=== PATIENT | female | born 1990 | race Caucasian/White ===

== ENCOUNTER 2018-02-24 13:04 | Emergency (ER) | payer SELFPAY ==
[2018-02-24 13:10] VITALS: BP 133/82
[2018-02-24] MEDS ORDERED: FAMOTIDINE INJ/PF 20 MG/2 ML SDV IV ONE (13:34)
[2018-02-24] MEDS ORDERED: NORMAL SALINE 1000 ML 1,000 ML IV ONE (13:34)
[2018-02-24] MEDS ORDERED: ONDANSETRON HCL INJ/PF 4 MG/2 ML SDV IV ONE (13:35)
--- NOTE | 2018-02-24 13:39 | ER Document Report ---
ED General - General Chief Complaint: Nausea/Vomiting Stated Complaint: DEHYDRATION Time Seen by Provider: 02/24/18 13:29 Mode of Arrival: Ambulatory Information source: Patient, [facility] Records Notes: 27-year-old female with no reported past medical history presents with complaint of nausea, vomiting and generalized abdominal pain and headache. Patient states that nausea and vomiting began this morning. She reports 3 episodes of nonbloody nonbilious emesis. Patient's abdominal pain is described as cramping, intermittent. Patient states that she believes she had diarrhea last night but admits to drinking and is unsure. She reports that she drank "a couple of beers". Headache is described as a mild throbbing headache without associated blurred vision, slurred speech, weakness. Patient denies sick contacts, dysuria, hematuria, fever, chills. Patient is concerned that she is dehydrated. TRAVEL OUTSIDE OF THE [place] IN LAST 30 DAYS: No - HPI Onset: Just prior to arrival Onset/Duration: Gradual Quality of pain: Cramping Severity: Mild Associated symptoms: Diarrhea, Nausea, Vomiting Exacerbated by: Denies Relieved by: Denies Similar symptoms previously: Yes Recently seen / treated by doctor: Yes - Related Data Allergies/Adverse Reactions: clindamycin Allergy (Verified 02/24/18 13:29) Penicillins Allergy (Verified 02/24/18 13:29) Past Medical History - General Information source: Patient, [facility] Records - Social History Smoking Status: Former Smoker Frequency of alcohol use: Occasional Drug Abuse: None Lives with: Family Family History: Reviewed & Not Pertinent Patient has suicidal ideation: No Patient has homicidal ideation: No - Medical History Medical History: Negative Renal/ Medical History: Denies: Hx Peritoneal Dialysis Review of Systems - Review of Systems Notes: REVIEW OF SYSTEMS: CONSTITUTIONAL : Denies fever, chills, or sweats. Denies recent illness. Denies weight loss, recent hospitalizations. EENT: Denies visual changes, eye pain. Denies sore throat, oral lesions, difficulty swallowing. CARDIOVASCULAR: Denies chest pain. Denies palpitations. Denies lower extremity edema. RESPIRATORY: Denies cough. Denies shortness of breath, wheezing. GASTROINTESTINAL: Denies abdominal distention. Denies blood in vomitus, stools, or per rectum. Denies black, tarry stools. Denies constipation. GENITOURINARY: Denies difficulty urinating, painful urination, frequency, blood in urine, or vaginal discharge. MUSCULOSKELETAL: Denies back or neck pain or stiffness. Denies joint pain or swelling. SKIN: Denies rash, lesions or sores. HEMATOLOGIC : Denies easy bruising or bleeding. LYMPHATIC: Denies swollen glands. NEUROLOGICAL: Denies confusion or altered mental status. Denies loss of consciousness. Denies dizziness or lightheadedness. Denies weakness or paralysis. Denies problems difficulty with ambulation, slurred speech. Denies sensory loss, numbness, or tingling. Denies seizures. PSYCHIATRIC: Denies anxiety or stress. Denies depression, suicidal ideation, or homicidal ideation. Denies visual or auditory hallucinations. Physical Exam - Vital signs Vitals: Temp Pulse Resp BP Pulse Ox 98.0 F 83 12 133/82 H 97 02/24/18 13:08 02/24/18 13:08 02/24/18 13:08 02/24/18 13:08 02/24/18 13:08 - Notes Notes: PHYSICAL EXAMINATION: GENERAL: Ill-appearing. Does not appear toxic. HEAD: Atraumatic, normocephalic. EYES: Pupils equal round and reactive to light, extraocular movements intact, conjunctiva are normal. ENT: Nares patent, oropharynx clear without exudates. Dry mucous membranes. NECK: Normal range of motion, supple without lymphadenopathy LUNGS: Breath sounds clear to auscultation bilaterally and equal. No wheezes rales or rhonchi. HEART: Regular rate and rhythm without murmurs ABDOMEN: Soft, nontender, nondistended abdomen. No guarding, no rebound. No masses appreciated. Female : deferred Musculoskeletal: Normal range of motion, no pitting or edema. No cyanosis. NEUROLOGICAL: Cranial nerves grossly intact. Normal speech, normal gait. Normal sensory, motor exams PSYCH: Normal mood, normal affect. SKIN: Warm, Dry, normal turgor, no rashes or lesions noted. Course - Re-evaluation Re-evalutation: Laboratory 02/24/18 02/24/18 13:47 13:47 Sodium 140.3 Potassium 4.2 Chloride 107 Carbon Dioxide 24 Anion Gap 9 BUN 12 Creatinine 0.71 Est GFR ( Amer) > 60 Est GFR (Non-Af Amer) > 60 Glucose 88 Calcium 9.6 Lipase 73.7 Urine Color YELLOW Urine Appearance SLIGHTLY-CLOUDY Urine pH 7.0 Ur Specific [place] 1.020 Urine Protein NEGATIVE Urine Glucose (UA) NEGATIVE Urine Ketones NEGATIVE Urine Blood NEGATIVE Urine Nitrite NEGATIVE Urine Bilirubin NEGATIVE Urine Urobilinogen 2.0 H Ur Leukocyte Esterase LARGE H Urine WBC (Auto) 13 Urine RBC (Auto) 2 Urine Bacteria (Auto) TRACE Squamous Epi Cells Auto 10 Urine Mucus (Auto) RARE Urine Ascorbic Acid NEGATIVE Urine HCG, Qual NEGATIVE 19-year-old female resents with nausea, vomiting, headache, abdominal cramping. Vital signs stable upon arrival. Physical exam within normal limits. Her exam is more consistent with being hung over than with dehydration. Patient was provided IV fluids, Zofran and Pepcid. BMP is without any electrolyte abnormalities. Urinalysis is suspicious for urinary tract infection. Patient states that she has no dysuria, frequency or urgency. We did speak about a short course of antibiotics which the patient is declining. 02/24/18 14:54 Patient declining antibiotic for urinary tract infection because she is "allergic to antibiotics". Urine culture will be sent. Patient reports improvement of her nausea, vomiting and headache. Patient was evaluated and treated as appropriate for the patient's presenting symptoms and complaint, with consideration of any critical or life threatening conditions that may be associated with their obtained history and exam as noted above. All results were discussed with patient. Patient provided the opportunity to ask questions, and express concerns. Patient was educated on treatments based on their presumed diagnosis as noted above. At this time we will discharge the patient with return precautions and follow-up recommendations. Verbal discharge instructions given a the bedside. Medication warnings reviewed. Patient is in agreement with this plan and has verbalized understanding of return precautions. After careful consideration I feel that that patient can be safely discharged from the emergency department, they were advised to followup with a primary care physician in 2-3 days. Dictation on this chart was performed using voice recognition software and may result in unintended grammatical, spelling, syntax or errors. 02/25/18 15:28 - Vital Signs Vital signs: Temp Pulse Resp BP Pulse Ox 98.0 F 83 12 133/82 H 97 02/24/18 13:08 02/24/18 13:08 02/24/18 13:08 02/24/18 13:08 02/24/18 13:08 - Laboratory Result Diagrams: 02/24/18 13:47 Laboratory results interpreted by me: 02/24/18 13:47 Urine Urobilinogen 2.0 H Ur Leukocyte Esterase LARGE H Discharge - Discharge Clinical Impression: Elevated blood pressure reading Nausea & vomiting Qualifiers: Vomiting type: unspecified Vomiting Intractability: non-intractable Qualified Code(s): R11.2 - Nausea with vomiting, unspecified Urinary tract infection Qualifiers: Urinary tract infection type: site unspecified Hematuria presence: without hematuria Qualified Code(s): N39.0 - Urinary tract infection, site not specified Condition: Good Disposition: HOME, SELF-CARE Instructions: Antinausea Medication ([facility]), Intravenous (IV) Fluids ([facility]), Urinary Tract Infection ([facility]), Vomiting ([facility]) Additional Instructions: Your urine shows findings consistent with a urinary tract infection. Please take all the antibiotics as directed even if your symptoms have improved. Please follow-up with your primary care physician as needed. Return to emergency room if you develop fever >101F, persistent vomiting, become lethargic , have severe pain in your sides, or any other symptoms that are concerning to you. Your labs do not show any evidence of dehydration. Follow up with your [id number] hours for further care or return to the ED IMMEDIATELY if symptoms worsen or you have any concerns. If you cannot afford to follow up with your primary care physician a list of low cost clinics have been provided at the end of your discharge papers as well. Most prescribed medications have multiple side effects. The safest thing to do is when filling your prescription speak to your pharmacist regarding possible interactions with your normal home medications and over the counter medications such as Ibuprofen, Tylenol, Benadryl. If you experience any symptoms that cause you discomfort or concern you should discontinue the medication immediately and return to the emergency room or call your primary care physician. Prescriptions: Nitrofurantoin Monohyd/M-Cryst [Macrobid 100 mg Capsule] 1 tab PO BID #20 capsule Ondansetron [Zofran Odt 4 mg Tablet] 1 tab PO Q4H PRN #15 tab.rapdis PRN Reason: For Nausea/Vomiting Forms: Elevated Blood Pressure
[2018-02-24 14:24] LABS: ANION GAP 9 (5-19); BLOOD UREA NITROGEN 12 mg/dL (7-20); CALCIUM 9.6 mg/dL (8.4-10.2); CARBON DIOXIDE 24 mmol/L (22-30); CHLORIDE 107 mmol/L (98-107); GLUCOSE 88 mg/dL (75-110); LIPASE 73.7 U/L (23-300); POTASSIUM 4.2 mmol/L (3.6-5.0); SODIUM 140.3 mmol/L (137-145)
[2018-02-24 14:39] LABS: APPEARANCE,URINE SLIGHTLY-CLOUDY; BILIRUBIN,URINE NEGATIVE (NEGATIVE); COLOR,URINE YELLOW; GLUCOSE, URINE NEGATIVE (NEGATIVE); KETONES,URINE NEGATIVE (NEGATIVE); LEUKOCYTE ESTERASE,URINE LARGE (NEGATIVE); NITRITE,URINE NEGATIVE (NEGATIVE); PROTEIN,URINE NEGATIVE (NEGATIVE)
[2018-02-24] MEDS ORDERED: NITROFURANTOIN MONOHYD/M-CRYST 100 MG CAPSULE PO ONE (14:50)
== END 2018-02-24 15:02 | disposition home or self-care (01) ==
LOC: ER 13:04
DX: N39.0 Urinary tract infection, site not specified (principal); R03.0 Elevated blood-pressure reading, without diagnosis of hypertension; R11.2 Nausea with vomiting, unspecified; R10.84 Generalized abdominal pain; R51 Headache; Z88.3 Allergy status to other anti-infective agents; Z88.0 Allergy status to penicillin
CPT/HCPCS: 99283; 96361; 96374; 36415; 83690; 81025; 80048; 81001; J2405; J7030; S0028; J8499; 87086

== ENCOUNTER 2018-03-11 12:03 | Emergency (ER) | payer SELFPAY ==
[2018-03-11] MEDS ORDERED: NORMAL SALINE 1000 ML 1,000 ML IV ONE (12:26)
[2018-03-11] MEDS ORDERED: ONDANSETRON HCL INJ/PF 4 MG/2 ML SDV IV ONE (12:27)
--- NOTE | 2018-03-11 12:30 | ER Document Report ---
ED Medical Screen (RME) - General Chief Complaint: Back Pain Stated Complaint: BACK PAIN Time Seen by Provider: 03/11/18 12:19 Notes: Patient is a 27-year-old female that presents to the emergency department for chief complaint of chest pain, left flank pain, nausea. Patient was recently seen and treated for urinary tract infection on the seventh, she states her symptoms are persistent, she is having right flank pain, she is also having pain in her chest that goes to her left armpit, and she also noticed a bruise this morning, on her arm, without trauma she states she sleeps on her left side , but does not recall any injury and she was concerned about this as well. She does not believe she is , she has some warmth in her urine, but no blood or significant pain with urination she has been on Macrobid for the past week. ROS: Unless otherwise stated in this report the patient's positive and negative responses for review of systems for constitutional, eyes, ENT, cardiovascular, respiratory, gastrointestinal, neurological, genitourinary, musculoskeletal, and integumentary systems and related systems to the presenting problem are either as stated in the HPI or were not pertinent or were negative for the symptoms and/or complaints related to the presenting medical problem. PHYSICAL EXAMINATION: Vital signs reviewed. GENERAL: Well-appearing, well-nourished and in no acute distress. HEAD: Atraumatic, normocephalic. EYES: Pupils equal round extraocular movements intact, conjunctiva are normal. ENT: Nares patent NECK: Normal range of motion CV: Heart regular rate and rhythm LUNGS: No respiratory distress Musculoskeletal: Normal range of motion NEUROLOGICAL: Normal speech PSYCH: Normal mood, normal affect. Skin: There is an area of ecchymosis approximately 8 cm x 5 cm in the patient's left upper arm, tenderness to palpation, no gross deformity MDM: Patient seen and examined for rapid initial assessment. Vital signs reviewed. A comprehensive ED assessment and evaluation of the patient, analysis of test results and completion of the medical decision making process will be conducted by additional ED providers. *Note is created using voice recognition software and may contain spelling, syntax or grammatical errors. TRAVEL OUTSIDE OF THE [place] IN LAST 30 DAYS: No - Related Data Allergies/Adverse Reactions: clindamycin Allergy (Verified 02/24/18 13:29) Penicillins Allergy (Verified 02/24/18 13:29) Past Medical History - Social History Frequency of alcohol use: Social Drug Abuse: None Renal/ Medical History: Denies: Hx Peritoneal Dialysis Past Surgical History: Reports: Hx Section Physical Exam - Vital signs Vitals: Temp Pulse Resp BP Pulse Ox 97.6 F 62 16 130/75 H 99 03/11/18 12:08 03/11/18 12:08 03/11/18 12:08 03/11/18 12:08 03/11/18 12:08 Course - Vital Signs Vital signs: Temp Pulse Resp BP Pulse Ox 97.6 F 62 16 130/75 H 99 03/11/18 12:08 03/11/18 12:08 03/11/18 12:08 03/11/18 12:08 03/11/18 12:08
[2018-03-11 13:50] LABS: ABSOLUTE EOSINOPHILS # (AUTO) 0.1 10^3/uL (0.0-0.6); ABSOLUTE LYMPHOCYTES (AUTO) 2.2 10^3/uL (0.5-4.7); ABSOLUTE MONOCYTES (AUTO) 0.4 10^3/uL (0.1-1.4); ABSOLUTE NEUT (AUTO) 2.9 10^3/uL (1.7-8.2); BASOPHILS % (AUTO) 0.8 % (0-2); EOSINOPHILS % (AUTO) 1.6 % (0-6); HEMATOCRIT 43.5 % (36.0-47.0); LYMPHOCYTES % (AUTO) 38.2 % (13-45); MEAN CORPUSCULAR HEMOGLOBIN 30.6 pg (27.0-33.4); MEAN CORPUSCULAR HGB CONC 34.5 g/dL (32.0-36.0); MEAN CORPUSCULAR VOLUME 89 fl (80-97); MONOCYTES % (AUTO) 7.3 % (3-13); PLATELET COUNT 143 10^3/uL (150-450); RED BLOOD COUNT 4.92 10^6/uL (3.72-5.28); RED CELL DISTRIBUTION WIDTH 12.9 % (11.5-14.0); SEGMENTED NEUTROPHILS % (AUTO) 52.1 % (42-78); TOTAL CELLS COUNTED % (AUTO) 100 %; WHITE BLOOD COUNT 5.6 10^3/uL (4.0-10.5)
[2018-03-11 13:56] LABS: APPEARANCE,URINE CLEAR; BILIRUBIN,URINE NEGATIVE (NEGATIVE); COLOR,URINE COLORLESS; GLUCOSE, URINE NEGATIVE (NEGATIVE); KETONES,URINE NEGATIVE (NEGATIVE); LEUKOCYTE ESTERASE,URINE NEGATIVE (NEGATIVE); NITRITE,URINE NEGATIVE (NEGATIVE); PROTEIN,URINE NEGATIVE (NEGATIVE); URINE SPECIFIC GRAVITY 1.003; UROBILINOGEN,URINE NEGATIVE mg/dL (<2.0)
[2018-03-11 14:11] LABS: ALANINE AMINOTRANSFERASE 15 U/L (9-52); ALBUMIN 4.8 g/dL (3.5-5.0); ALKALINE PHOSPHATASE 60 U/L (38-126); ANION GAP 9 (5-19); ASPARTATE AMINO TRANSFERASE 23 U/L (14-36); BILIRUBIN,DIRECT 0.3 mg/dL (0.0-0.4); BILIRUBIN,TOTAL 0.8 mg/dL (0.2-1.3); BLOOD UREA NITROGEN 11 mg/dL (7-20); CALCIUM 9.5 mg/dL (8.4-10.2); CARBON DIOXIDE 26 mmol/L (22-30); CHLORIDE 105 mmol/L (98-107); GLUCOSE 84 mg/dL (75-110); LIPASE 179.2 U/L (23-300); POTASSIUM 4.2 mmol/L (3.6-5.0); SODIUM 139.6 mmol/L (137-145); TOTAL PROTEIN 8.2 g/dL (6.3-8.2)
--- NOTE | 2018-03-11 14:56 | RADIOLOGY REPORT (SQ) ---
EXAM DESCRIPTION: CT ABD/PELVIS NO ORAL OR IV COMPLETED DATE/TIME: 03/11/2018 2:45 pm REASON FOR STUDY: left flank pain COMPARISON: None. TECHNIQUE: CT scan of the abdomen and pelvis performed without intravenous or oral contrast. Images reviewed with lung, soft tissue, and bone windows. Reconstructed coronal and sagittal MPR images revi ewed. All images stored on PACS. All CT scanners at this facility use dose modulation, iterative reconstruction, and/or weight based d osing when appropriate to reduce radiation dose to as low as reasonably achievable (ALARA). [facility]: Dose Right [facility]: CareDose [facility]: Dose Right [facility]: Teradose 4D [facility]: Healthpointz RADIATION DOSE: CT Rad equipment meets quality standard of care and radiation dose reduction techniq ues were employed. CTDIvol: 5.8 mGy. DLP: 317 mGy-cm.mGy. LIMITATIONS: None. FINDINGS: LOWER CHEST: No significant findings. No nodules or infiltrates. NON-CONTRASTED LIVER, SPLEEN, ADRENALS: Evaluation limited by lack of IV contrast. No identified sign ificant masses. PANCREAS: No masses. No peripancreatic inflammatory changes. GALLBLADDER: No identified stones by CT criteria. No inflammatory changes to suggest cholecystitis. RIGHT KIDNEY AND URETER: No suspicious masses. Assessment limited by lack of IV contrast. No signif icant calcifications. No hydronephrosis or hydroureter. LEFT KIDNEY AND URETER: No suspicious masses. Assessment limited by lack of IV contrast. No signifi cant calcifications. No hydronephrosis or hydroureter. AORTA AND RETROPERITONEUM: No aneurysm. No retroperitoneal masses or adenopathy. BOWEL AND PERITONEAL CAVITY: No obvious masses or inflammatory changes. No free fluid. APPENDIX: Normal. PELVIS, BLADDER, AND ABDOMINAL WALL:IUD in the uterus. No abnormal masses. No free fluid. Bladder no rmal. BONES: No significant findings. OTHER: No other significant finding. IMPRESSION: NO SIGNIFICANT OR ACUTE PROCESS IN THE ABDOMEN OR PELVIS. COMMENT: Quality ID # [id number]: Final reports with documentation of one or more dose reduction techniques (e.g., Automated exposure control, adjustment of the mA and/or kV according to patient size, use of iterative reconstruction technique) TECHNICAL DOCUMENTATION: JOB ID: [id number] [email or web address]- All Rights Reserved Reading location - IP/workstation name: [email or web address]
--- NOTE | 2018-03-11 15:00 | RADIOLOGY REPORT (SQ) ---
EXAM DESCRIPTION: CHEST 2 VIEWS COMPLETED DATE/TIME: 03/11/2018 2:52 pm REASON FOR STUDY: chest pain COMPARISON: None. EXAM PARAMETERS: NUMBER OF VIEWS: two views TECHNIQUE: Digital Frontal and Lateral radiographic views of the chest acquired. RADIATION DOSE: NA LIMITATIONS: none FINDINGS: LUNGS AND PLEURA: No opacities, masses or pneumothorax. No pleural effusion. MEDIASTINUM AND HILAR STRUCTURES: No masses or contour abnormalities. HEART AND VASCULAR STRUCTURES: Heart normal size. No evidence for failure. BONES: No acute findings. HARDWARE: None in the chest. OTHER: No other significant finding. IMPRESSION: NO ACUTE RADIOGRAPHIC FINDING IN THE CHEST. TECHNICAL DOCUMENTATION: JOB ID: [id number] [employer]- All Rights Reserved Reading location - IP/workstation name: [email or web address]
--- NOTE | 2018-03-11 16:36 | ER Document Report ---
ED General - General Chief Complaint: Back Pain Stated Complaint: BACK PAIN Time Seen by Provider: 03/11/18 12:19 Mode of Arrival: Ambulatory Information source: Patient Notes: Patient is a 27-year-old female comes emergency room with multiple complaints primarily right hip pain for the past 4 months but got her here today as a pain on the left side of her body around the shoulder blade and around under the armpit and towards the breast. She calls this a heaviness like a pressure pushing out and at times it feels like needles. She denies severe pain when she takes a deep breath but notices the difference between the left and right upper body. She denies having any kind of a traumatic event but she does have a 3-year-old that she picks up with both arms. She also has a bruise on the left upper arm lateral side. Is from out of town and they are headed back to [place] tomorrow. Denies any other medical problems. Patient also states she was in here not too long ago and was diagnosed with her first UTI of her life and took the prescribed amount of Macrobid and felt that may be this pain was associated with having an increasing kidney infection. Also states she is under more pressure than usual with the her mother dying Her trip back to [place]. There is no history of breast cancer in the family which patient has not been checked for 10 years. She has not seen [facility] in that period time either. TRAVEL OUTSIDE OF THE [place] IN LAST 30 DAYS: No - HPI Onset: This morning Onset/Duration: Sudden Quality of pain: Sharp, Stabbing, Other - [place] Severity: Moderate Pain Level: 4 Associated symptoms: Hurts to breath Exacerbated by: Movement, Deep breathing, Other - Touch Relieved by: Denies Similar symptoms previously: No Recently seen / treated by doctor: No - Related Data Allergies/Adverse Reactions: clindamycin Allergy (Verified 02/24/18 13:29) Penicillins Allergy (Verified 02/24/18 13:29) Past Medical History - General Information source: Patient - Social History Smoking Status: Current Some Day Smoker Cigarette use (# per day): Yes Chew tobacco use (# tins/day): No Smoking Education Provided: Yes Frequency of alcohol use: Social Drug Abuse: None Lives with: Family Family History: Reviewed & Not Pertinent Patient has suicidal ideation: No Patient has homicidal ideation: No Renal/ Medical History: Denies: Hx Peritoneal Dialysis Past Surgical History: Reports: Hx Section Review of Systems - Review of Systems Constitutional: No symptoms reported EENT: No symptoms reported Cardiovascular: No symptoms reported Respiratory: No symptoms reported Gastrointestinal: No symptoms reported Genitourinary: No symptoms reported Female Genitourinary: No symptoms reported Musculoskeletal: Back pain, Muscle pain Skin: No symptoms reported Hematologic/Lymphatic: No symptoms reported Neurological/Psychological: No symptoms reported -: Yes All other systems reviewed and negative Physical Exam - Vital signs Vitals: Temp Pulse Resp BP Pulse Ox 97.6 F 62 16 130/75 H 99 03/11/18 12:08 03/11/18 12:08 03/11/18 12:08 03/11/18 12:08 03/11/18 12:08 Interpretation: Hypertensive - Notes Notes: PHYSICAL EXAMINATION: GENERAL: Well-appearing, well-nourished and in no acute distress. HEAD: Atraumatic, normocephalic. EYES: Pupils equal round and reactive to light, extraocular movements intact, conjunctiva are normal. ENT: Nares patent, oropharynx clear without exudates. Moist mucous membranes. NECK: Normal range of motion, supple without lymphadenopathy LUNGS: Breath sounds clear to auscultation bilaterally and equal. No wheezes rales or rhonchi. HEART: Regular rate and rhythm without murmurs ABDOMEN: Soft, nontender, nondistended abdomen. No guarding, no rebound. No masses appreciated. Female : deferred Musculoskeletal: Normal range of motion, no pitting or edema. No cyanosis. Examination of patient's area of pain and discomfort runs from the right shoulder blade scapular area around to the lateral side of the chest and down around the left breast. Light touch or light palpation along that dermatome causes the similar type of discomfort and pain patient was talking about. It is all on the left side of the body. There is no visible rash at this time. Time of presentation of pain was really day ago but worse today. Also with resistance moved on the left side patient has increased tenderness along that dermatome as well. NEUROLOGICAL: Cranial nerves grossly intact. Normal speech, normal gait. Normal sensory, motor exams PSYCH: Normal mood, normal affect. SKIN: Warm, Dry, normal turgor, no rashes or lesions noted. Course - Re-evaluation Re-evalutation: 03/11/18 16:53 Patient had an extensive workup in the emergency room. She had a CT of the abdomen and pelvis which showed no acute findings. She had a chest x-ray which showed no acute findings. Her labs were normal with the exception of her platelet count was 143,000. Just slightly low. So there is no correlation between the radiologic intervention that was done today and the lab work that was done today to find a cause of her discomfort and pain. Physical exam was heightened highlighted because presentation and examination go along with that of a shingles type presentation. And that is what we will treat for. Patient seems somewhat dejected that we could not put an exact finger on every thing that was going on with her. The right hip has been going on for 4 months and it was negative workup she does have palpable discomfort but again her main complaint was for the left posterior shoulder and axillary area and I believe that we are justified in treating for the shingles presentation. Patient has no neck pain whatsoever. She has full range of motion and palpation of the neck is nontender she has no cervical compression radiculopathy. At this time I am comfortable discharging patient home with the treatment for shingles. - Vital Signs Vital signs: Temp Pulse Resp BP Pulse Ox 97.6 F 62 16 130/75 H 99 03/11/18 12:08 03/11/18 12:08 03/11/18 12:08 03/11/18 12:08 03/11/18 12:08 - Laboratory Result Diagrams: 03/11/18 13:22 03/11/18 13:22 Laboratory results interpreted by me: 03/11/18 13:22 Plt Count 143 L Discharge - Discharge Clinical Impression: Shingles (herpes zoster) polyneuropathy Condition: Stable Disposition: HOME, SELF-CARE Instructions: Shingles ([facility]) Additional Instructions: As we discussed the diagnosis of shingles is 1 by illumination and by presentation. Given the understanding of increased amount of stress traveling back to [place] your mother's health anything can set off an outbreak of shingles and it can be at any age. We are going to put you on a treatment of 3 things the first is going to be a antiviral which will hopefully help reduce the intensity and the duration. The second is going to be an anti-inflammatory for pain since you did not want a narcotic. And the third is a lot of put you on a medication called gabapentin which will help with the neuropathic kind of pain. Sometimes the gabapentin can be sedating so I would only take it at night before bed and will start you at a lower dose and increase it after the initial couple days. As we also discussed it will probably be your best interest when you are back to [place] to invest in finding a primary care physician and establish all your baselines. Also as we discussed you have a strong history of breast cancer your family and you have not had any gynecology workup in 10 years. At this point it is imperative that you catch up on those things. Any of those female disease states can be curable if caught early but if not the outcomes are much worse. Should you have any concerns or problems on your return to [place] please do not hesitate to go to the emergency room for further evaluation. If you are in town please do not hesitate to come back here. Prescriptions: Gabapentin 400 mg PO ASDIR PRN #30 capsule PRN Reason: Ibuprofen 800 mg PO TID #30 tablet Valacyclovir HCl [Valacyclovir] 1,000 mg PO TID #21 tablet
[2018-03-11 17:13] VITALS: BP 130/62
--- NOTE | 2018-03-11 23:22 | EKG REPORT ---
SEVERITY:- NORMAL ECG - SINUS RHYTHM : Confirmed by: Eufemia Feldman 11-Mar-2018 23:21:35
== END 2018-03-11 17:13 | disposition home or self-care (01) ==
LOC: ER 12:03
DX: B02.23 Postherpetic polyneuropathy (principal); M54.9 Dorsalgia, unspecified; F17.210 Nicotine dependence, cigarettes, uncomplicated
CPT/HCPCS: 93005; 99284; 96360; 36415; 83690; 85025; 81025; 80053; 81001; 84484; 71046; 74176; 93010; J2405; J7030